=== PATIENT | female | born 1935 | race Caucasian/White ===

== ENCOUNTER → 2016-11-29 | Outpatient (CLI) | payer MEDICARE | LOC: LAB 10:44 | PROVIDERS: ATTEND Family Medicine | DX: E11.9 Type 2 diabetes mellitus without complications (principal) | CPT/HCPCS: 36415; 83036 ==

== ENCOUNTER 2017-01-30 10:45 | Outpatient (RCR) | payer MEDICARE ==
--- NOTE | 2016-12-11 11:41 | PT/OT/ST INITIAL EVALUATION ---
Department of Health and Human Services Form Approved Health Care Financing Administration OMB No. [id number] PLAN OF CARE/ASSESSMENT FOR OUTPATIENT REHABILITATION (Complete for Initial Claims Only) 1. PATIENT'S NAME Evy Jolly 2. ACC # [id number] 3. [facility] [id number] 4. PROVIDER NO. [id number] 5. TYPE: PT 6. PRIOR HOSPITALIZATION NA 7. PRIMARY DX Right-sided sciatica 8. SECONDARY DX NA 9. ONSET DATE Worsening in the last month 10. REFERRAL DATE NA 11. SOC. DATE 12/05/2016 12. TIME OF EVAL 9:41 a.m. 12. REFERRING PHYSICIAN Rafi Silva MD 13. CHARGES/UNITS NA 14. G CODES [id number] 15. PRIOR LEVEL OF FUNCTION; PERTINENT HISTORY (Prior therapy results, reason for referral.) S: Prior to therapy, the patient did consent to today's evaluation and treatment. The patient is a 81-year-old female referred to physical therapy by Dr. Silva to address right-sided sciatica. Personal health rating: The patient does rate her overall and general health as good. Description/mechanism of injury: The patient states she has been dealing with low back issues for years, however, in the last month the pain has significantly worsened, culminating in pain in the low back and also pain that goes down her right leg. The patient does state the pain wraps around from her low back region around to the front of her thigh. Primary Complaint: The patient states her primary complaint is having difficulty sleeping and being able to stand for any period of time is significantly difficult. The patient has undergone a series of several injections with the last one being in August and did not help significantly. 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 Current level of function: Currently the patient is unable to stand longer than 5 minutes before significant pain starts and she is unable to walk for more than 10 to 15 minutes making working out difficult for her as was her habit prior to onset of this. The patient was additionally having difficulty completing all tasks required of her at the fitness center as bending over working on the equipment increases her pain. The patient is additionally having difficulty sleeping due to having pain when laying on her right side, which is her typical sleeping position. Therapy History: The patient has had no previous physical therapy for this condition. No obstacles of delivery of care are observed. Pain level: Maximal pain level is 10/10. Typical pain level is 5/10 and this is the best that the pain gets. The patient describes the pain as an intense ache and a burning sensation down her right leg. Aggravating factors: Include, once again standing or being weightbearing for long periods. Relieving factors: Include ice and rest. Diagnostic testing: Include an MRI, which the patient is unsure of the results, but will bring report at next visit, however, she does remember osteoarthritis. Past medical history: Includes osteoarthritis, hypertension, and thyroid issues. Current medications: The patient has provided a list of medications, which is included in the chart. Patient's Goal: The patient's goal for physical therapy is to have decreased pain and to be able to go and do things with less pain. Her primary goal is to be able to stand at congregation through a whole song without needing to sit. 16. INITIAL ASSESSMENT/SAFETY PRECAUTIONS/MEDICAL COMPLICATIONS (Level of function at start of care. Be specific, use objective measures, list problems.) O: APPEARANCE AND OBSERVATION: The patient presents as an older female in apparently healthy condition. She does ambulate into the department with a left Trendelenburg gait pattern with a slightly forward flexed posture. Upon observing her in a neutral posture, she does have a flattened lumbar spine. The patient additionally has scoliosis present with both primary and secondary curves. PALPATION: With palpation, the patient has significant increased tone throughout the thoracic and lumbar spine paraspinals, as well as being specifically point tender and having increased tone at bilateral piriformis muscles. SPECIAL TESTS: Include a positive left Trendelenburg test, decreased excursion of the left PSIS with the stork test, deep tendon reflexes, which were 1+/4 or hyporeflexive for both patellar and Achilles bilaterally. PAs were attempted, but were unable to be assessed secondary to point tenderness and the patient being unable to tolerate deep palpation of her spine. OUTCOME ASSESSMENTS: Modified Oswestry low back pain disability questionnaire which scored 48% disability. RANGE OF MOTION/FLEXIBILITY: Throughout the lumbar spine is within functional limits, however, as compared to the left side, right side bend is approximately 30% limited and did cause radicular symptoms down the right lower extremity and right rotation is approximately 20% limited and did reproduce radicular symptoms. With side bend and rotation, the patient does have an L3 pivot point. Hamstring flexibility is within normal limits and grossly equal bilaterally. Piriformis flexibility is approximately 30% limited bilaterally. STRENGTH: Throughout the left lower extremity is grossly 4/5 throughout with the exception of hip abduction, which is 3-/5. Hip abduction on the right 3+/5. All motions throughout the right lower extremity are grossly 4/5. Core strength is grossly a level 0.4/3 November. TODAY'S TREATMENT: Following the initial evaluation therapeutic exercise was performed and issued as a home exercise program. An electrical stimulation treatment with moist heat pack was then performed. The patient did have decreased tone in lumbar spine paraspinals following this treatment and did report a decrease in pain. 17. INITIAL POC: (Specify procedures, modalities, short and extermination inspector goals) A: The patient presents to physical therapy with the diagnosis of right-sided sciatica with resultant decreased flexibility in the lumbar spine and lower extremities, increased pain, increased lumbar spine paraspinal tone, and decreased strength. PROGNOSIS: This patient does have a good prognosis with regular therapy attendance and compliance with home exercise program. This patient is expected to benefit from physical therapy services in order to have decreased pain, increased weightbearing tolerance to return to unlimited activities. INFORMED CONSENT: The diagnosis, prognosis, treatment plan, risks and expected outcomes were discussed with the patient and the patient did agree to today's established plan of care. SHORT TERM GOALS: 1. The patient to be independent and compliant with home exercise program in 1 week. 2. The patient with no reports of right lower extremity radicular symptoms in 3 weeks to allow sleeping at night. 3. The patient with bilateral hip abduction at least 4/5 in 5 weeks to allow for unlimited community outings. 4. The patient with a Modified Oswestry low back pain disability questionnaire no more than 19% disability in 6 weeks to allow standing in congregation through a whole song. P: Plan to treat the patient 2 times per week for 6 weeks in order to address right-sided sciatica. Therapeutic treatments to include modalities to decrease pain, inflammation and spasming. Manual therapy techniques as indicated. A possible trial of mechanical traction. Therapeutic exercise targeting active range of motion, core stabilization and hip stabilization activities, gait training, balance proprioceptive training, and patient education and home exercise program to be advanced as warranted. 18. FREQUENCY 2 times per week 19. DURATION 6 weeks 20. FUNCTIONAL LEVEL (End of claim period) 21. PHYSICIAN SIGNATURE ? ON FILE OR ENTER HERE: 22. DATE: I certify the need for these services furnished under this plan of care and if for partial hospitalization. 23. CERTIFICATION FROM THROUGH FORM [id number]
[~2017-01-30 10:45] MED LIST: ALEN10TA5 PO; LISI1TAB6 PO; LVT.025T PO; OMEP20CA12 PO
== END 2017-02-13 08:46 | disposition home or self-care (01) ==
LOC: PT 10:45
PROVIDERS: ATTEND Family Medicine
DX: M54.31 Sciatica, right side (principal)
CPT/HCPCS: 97012; 97035; 97110; 97112; 97140; 97161; G0283; G8978; G8979; G8980; 97014